=== PATIENT | male | born 1990 | race Caucasian/White ===

== ENCOUNTER 2018-12-16 05:33 | Emergency (ER) | payer SELFPAY ==
[~2018-12-16] VITALS: Ht 180.3 cm; Wt 74.9 kg
[2018-12-16 05:34] VITALS: BP 125/80
[2018-12-16] MEDS ORDERED: LIDOCAINE 1%-EPI 1:100K, 20ML ONE (05:52)
[2018-12-16] MEDS ORDERED: DIPH,PERTUSS(ACELL),TET VAC/PF 0.5 ML IM-VACC ONE ×2 (06:00→06:56)
[2018-12-16] MEDS ORDERED: LIDOCAINE 1%-EPI 1:100K, 20ML SQ ONE (06:00)
== END 2018-12-16 07:03 | disposition home or self-care (01) ==
LOC: ED 06:55
DX: S01.311A Laceration without foreign body of right ear, initial encounter (principal); X58.XXXA Exposure to other specified factors, initial encounter; Y93.89 Activity, other specified; Y92.89 Other specified places as the place of occurrence of the external cause; Y99.8 Other external cause status
CPT/HCPCS: 12011; 90471; 90715

== ENCOUNTER 2020-01-04 15:47 | Emergency (ER) | payer OTHER ==
[~2020-01-04] VITALS: Ht 182.9 cm; Wt 70.1 kg
[2020-01-04 15:49] VITALS: BP 112/61
--- NOTE | 2020-01-04 16:25 | NUR ---
right knee pain after injuring it at work
[2020-01-04] MEDS ORDERED: IBUPROFEN 600 MG TABLET PO ONE (16:30)
[2020-01-04] MEDS ORDERED: IBUPROFEN 600 MG TABLET ONE (16:31)
== END 2020-01-04 17:57 | disposition home or self-care (01) ==
LOC: ED 17:40
DX: S80.01XA Contusion of right knee, initial encounter (principal); M25.562 Pain in left knee; X58.XXXA Exposure to other specified factors, initial encounter; Y93.89 Activity, other specified; Y92.89 Other specified places as the place of occurrence of the external cause; Y99.0 Civilian activity done for income or pay
CPT/HCPCS: 99283

== ENCOUNTER 2020-07-14 13:45 | Emergency (ER) | payer OTHER ==
[~2020-07-14] VITALS: Ht 198.1 cm; Wt 71.1 kg
[2020-07-14] MEDS ORDERED: DEXAMETHASONE 4 MG TABLET PO ONE (14:00)
--- NOTE | 2020-07-14 14:57 | NUR ---
[employer]: PT TO ROOM FROM LOBBY VIA W/C
--- NOTE | 2020-07-14 15:15 | NUR ---
Assumed care of patient. NAD. VSS. No needs.
[2020-07-14] MEDS ORDERED: DEXAMETHASONE 4 MG TABLET ONE (15:24)
[2020-07-14 15:30] VITALS: BP 121/74
[2020-07-14] MEDS ORDERED: ACETAMINOPHEN 325 MG TABLET PO ONE (15:30)
[2020-07-14] MEDS ORDERED: ACETAMINOPHEN 500 MG TABLET ONE (15:38)
--- NOTE | 2020-07-14 15:58 | NUR ---
Patient/Caregiver given discharge instructions and they have confirmed that they understand the instructions. Patient ambulatory with steady gait.
== END 2020-07-14 16:04 | disposition home or self-care (01) ==
LOC: ED 14:49
DX: B34.9 Viral infection, unspecified (principal); Z20.828 Contact with and (suspected) exposure to other viral communicable diseases; R51.9 Headache, unspecified; R05 Cough; R00.0 Tachycardia, unspecified; R06.02 Shortness of breath; M79.10 Myalgia, unspecified site
CPT/HCPCS: 71045; 93005; 99285; U0003